=== PATIENT | male | born 1985 | race Hispanic/Latino ===

== ENCOUNTER 2018-02-22 22:13 | Emergency (ER) | payer OTHER ==
[2018-02-22 22:24] VITALS: TEMP 98.4; O2SAT 98
[2018-02-22] MEDS ORDERED: DiphenhydrAMINE 50 mg/ml Inj ONE (22:38)
[2018-02-22 23:23] LABS: BASO # 0.1 K/uL (0.0-0.2); BASO % 0.7 % (0.0-2.0); EOS # 0.2 K/uL (0.0-0.7); EOS % 1.9 % (0.0-4.0); HEMOGLOBIN 14.7 g/dL (12.0-18.0); LYMPH # 1.7 K/uL (1.0-4.3); LYMPH % 18.8 % (20.0-40.0); MEAN CORPUSCULAR HEMOGLOBIN 29.9 pg (27.0-31.0); MEAN CORPUSCULAR HGB CONC 34.8 g/dL (33.0-37.0); MEAN PLATELET VOLUME 9.1 fL (7.2-11.7); MONO # 0.9 K/uL (0.0-0.8); MONO % 9.5 % (0.0-10.0); NEUT # 6.4 K/uL (1.8-7.0); NEUT % 69.1 % (50.0-75.0); RBC 4.91 Mil/uL (4.40-5.90); RED CELL DISTRIBUTION WIDTH 13.6 % (11.5-14.5); WHITE BLOOD COUNT 9.3 K/uL (4.8-10.8)
[2018-02-22 23:35] LABS: GFR AFRICAN-AMERICAN > 60; GFR NON-AFRICAN AMERICAN > 60
[2018-02-22 23:37] LABS: ALB/GLOB RATIO 1.2 (1.0-2.1); ALBUMIN 4.8 g/dL (3.5-5.0); ALT/SGPT 31 U/L (21-72); AST/SGOT 58 U/L (17-59); BLOOD UREA NITROGEN 16 mg/dL (9-20)
--- NOTE | 2018-02-23 00:52 | CT ---
EXAM: CT Orbits, Sella, Posterior Fossa or Auditory System Without Intravenous Contrast EXAM DATE/TIME: 02/22/2018 10:50 PM CLINICAL HISTORY: 32 years old, male; Pain; Other: Rt ear; Additional info: R earache, preauricular and postauricular swelling TECHNIQUE: Axial computed tomography images of the orbits, sella, posterior fossa or auditory system without intravenous contrast. All CT scans at this facility use one or more dose reduction techniques, viz.: automated exposure control; ma/kV adjustment per patient size (including targeted exams where dose is matched to indication; i.e. head); or iterative reconstruction technique. Coronal and sagittal reformatted images were created and reviewed. COMPARISON: No relevant prior studies available. FINDINGS: There is edema and soft tissue density surrounding the right auditory canal. There is partial opacification of the right external and middle auditory canals supportive of acute infectious/inflammatory process/otitis externa/media. There is a small amount of fluid within the right mastoid air cells that is asymmetric supportive of mastoiditis. Mucosal thickening of the maxillary sinuses. IMPRESSION: Findings as discussed above supportive of acute infectious/inflammatory process surrounding the right ear, involving the external and middle auditory canals (otitis) as well as the right mastoid air cells (mastoiditis).
[2018-02-23] MEDS ORDERED: Clindamycin 600mg/50ml NS 600 MG/50 ML BAG IVPB ONE (01:00)
--- NOTE | 2018-02-23 01:03 | C.PDOC ---
History Of Present Illness 32 years old male sent to ED by PMD for worsening ear pain. Patient states 3 days ago he went to PMD for complaints of discomfort of right eat and PMD removed wax and recommended to use debrox drops. Patient reports as he tried using the drops today, pain worsened and he developed behind ear discomfort then called PMD and PMD sent him here. Denies any other complaints. Time Seen by Provider: 02/22/18 22:37 Chief Complaint (Nursing): ENT Problem History Per: Patient History/Exam Limitations: None Onset/Duration Of Symptoms: Hrs Current Symptoms Are (Timing): Still Present Quality (Ear): Pain W/Touch Quality (Mouth/Throat): Tenderness Symptoms Have Been: Continuous Anticoagulant/Antiplatlet Use?: No Past Medical History Reviewed: Historical Data, Nursing Documentation, Vital Signs Vital Signs: Last Vital Signs Temp 98.4 F 02/22/18 22:18 Pulse 70 02/23/18 01:05 Resp 18 02/23/18 01:05 BP 122/65 02/23/18 01:05 Pulse Ox 98 02/23/18 01:33 - Medical History PMH: No Chronic Diseases Surgical History: No Surg Hx Family History: States: No Known Family Hx - Social History Hx Alcohol Use: Yes Hx Substance Use: No - Immunization History Hx Tetanus Toxoid Vaccination: No Hx Influenza Vaccination: No Hx Pneumococcal Vaccination: No Review Of Systems Constitutional: Negative for: Fever, Chills ENT: Positive for: Ear Pain. Negative for: Ear Discharge Gastrointestinal: Negative for: Nausea, Vomiting, Diarrhea Skin: Negative for: Rash Neurological: Negative for: Weakness, Numbness Physical Exam - Physical Exam Appears: Non-toxic, No Acute Distress Skin: Normal Color, Warm, Dry Head: Atraumatic, Normacephalic Eye(s): bilateral: Normal Inspection, PERRL, EOMI Ear(s): Right: Other (preauricular and postauricular tenderness; mild musculatory tenderness; external canal swollen; TM not visualized) Oral Mucosa: Moist Throat: No Erythema, No Exudate, No Drooling Neck: Supple Cardiovascular: Rhythm Regular Extremity: Normal ROM Neurological/Psych: Oriented x3, Normal Speech, Normal Cognition Gait: Steady ED Course And Treatment - Laboratory Results Result Diagrams: 02/22/18 23:20 02/22/18 23:20 O2 Sat by Pulse Oximetry: 98 (RA) Pulse Ox Interpretation: Normal - CT Scan/US CT mastoid Other Rad Studies (CT/US): Read By Radiologist, Radiology Report Reviewed CT/US Interpretation: EXAM: CT Orbits, Sella, Posterior Fossa or Auditory System Without Intravenous Contrast. EXAM DATE/TIME: 02/22/2018 10:50 PM. CLINICAL HISTORY: 32 years old, male; Pain; Other: Rt ear; Additional info: R earache, preauricular and postauricular. swelling. TECHNIQUE: Axial computed tomography images of the orbits, sella, posterior fossa or auditory system without. intravenous contrast. All CT scans at this facility use one or more dose reduction techniques, viz.: automated exposure control; ma/kV adjustment per patient size (including targeted exams where. dose is matched to indication ; i.e. head); or iterative reconstruction technique. Coronal and sagittal reformatted images were created and reviewed. COMPARISON: No relevant prior studies available. FINDINGS: There is edema and soft tissue density surrounding the right auditory canal. There is partial opacification of the right external and middle auditory canals supportive of acute. infectious/ inflammatory process/otitis externa/media. There is a small amount of fluid within the right mastoid air cells that is asymmetric supportive of. mastoiditis. Mucosal thickening of the maxillary sinuses. IMPRESSION: Findings as discussed above supportive of acute infectious/inflammatory process surrounding the. right ear, involving the external and middle auditory canals ( otitis) as well as the right mastoid air. cells (mastoiditis). Thank you for allowing us to participate in the care of your patient. Dictated and Authenticated by: Liv Cintron MD. 02/23/2018 12:52 AM Eastern Time ([place] & [place]) Progress Note: Patient was treated with Clindamycin 600 mg IVPB and he is stable to be d/c home with PMD and ENT follow up. Disposition - Disposition Referrals: James Osuna MD [Staff Provider] - Disposition: HOME/ ROUTINE Disposition Time: 01:27 Condition: STABLE Additional Instructions: Follow up with ENT specialist within 1-2 days. Return to ED if feel worse. Prescriptions: Ciprofloxacin/Dexamethasone [Ciprodex 0.3%-0.1% 7.5 Ml] 3 drop OT QID #1 bottle Clindamycin [Cleocin] 300 mg PO Q6 #28 cap Saccharomyces Boulardii [Florastor 33 mg-250 mg] 1 cap PO DAILY #30 cap Ibuprofen [Motrin Tab] 600 mg PO Q8 #30 tab Instructions: Mastoiditis (DC) Forms: [facility] (Palestinian) - Clinical Impression Clinical Impression: Mastoiditis, Otitis media, Otitis externa - PA / RESIDENTIAL SUBCONTRACTOR / Resident Statement MD/DO has reviewed & agrees with the documentation as recorded. - Scribe Statement The provider has reviewed the documentation as recorded by the Scribe Lori Jimenes All medical record entries made by the Leslieibleandra were at my direction and personally dictated by me. I have reviewed the chart and agree that the record accurately reflects my personal performance of the history, physical exam, medical decision making, and the department course for this patient. I have also personally directed, reviewed, and agree with the discharge instructions and disposition.
[2018-02-23 01:05] VITALS: BP 122/65; PULSE 70; RESP 18
== END 2018-02-23 01:52 | disposition home or self-care (01) ==
LOC: C.ER 22:13
DX: H70.91 Unspecified mastoiditis, right ear (principal); H66.91 Otitis media, unspecified, right ear; H60.91 Unspecified otitis externa, right ear